=== PATIENT | female | born 1975 | race Caucasian/White ===

== ENCOUNTER → 2020-09-16 09:43 | Outpatient (BNVA) | payer SELFPAY | DX: Z02.1 Encounter for pre-employment examination (principal) ==

== ENCOUNTER 2021-08-21 19:25 | Outpatient (REF) | payer OTHER, SELFPAY ==
[2021-08-21 20:10] LABS: COVID-19 Test Negative (Negative)
== END 2021-08-21 19:26 | disposition home or self-care (01) ==
LOC: HO.LAB 19:25
PROVIDERS: Visit Provider Internal Medicine
DX: Z20.822 Contact with and (suspected) exposure to COVID-19 (principal)
CPT/HCPCS: 87635

== ENCOUNTER → 2021-09-22 11:29 | Outpatient (BNVA) | payer OTHER, SELFPAY | PROVIDERS: Visit Provider Physician Assistant | DX: M77.11 Lateral epicondylitis, right elbow (principal) | CPT/HCPCS: 20551; J1020 ==

== ENCOUNTER → 2022-05-16 15:29 | Outpatient (BNVA) | payer OTHER, SELFPAY | PROVIDERS: PCP Internal Medicine; Visit Provider Physician Assistant | DX: Z13.89 Encounter for screening for other disorder (principal) ==

== ENCOUNTER 2022-05-22 08:41 | Outpatient (REF) | payer OTHER, SELFPAY ==
--- NOTE | ~2022-05-22 | XR_ITS ---
EXAMINATION: XR ANKLE, RIGHT CLINICAL INFORMATION: Pain. COMPARISON: None available. TECHNIQUE: AP, lateral, and mortise views of the right ankle. FINDINGS: Bony alignment and mineralization are normal. No fracture, dislocation or right joint effusion is seen. The ankle mortise is intact. Boehler's angle is normal. There is a minimal plantar calcaneal spur. No focal soft tissue swelling, gas or foreign body is seen. XR/XR ankle RT min 3V IMPRESSION: There is a minimal plantar calcaneal spur incidentally noted. The examination is otherwise unremarkable.
== END 2022-05-22 08:42 | disposition home or self-care (01) ==
LOC: HO.HOSX 08:41
PROVIDERS: Visit Provider Physician Assistant
DX: M25.571 Pain in right ankle and joints of right foot (principal)
CPT/HCPCS: 73610

== ENCOUNTER 2023-01-03 13:52 | Outpatient (AMB) | payer OTHER, SELFPAY ==
--- NOTE | 2023-01-03 13:57 | A.OFFVIS_ITS ---
Intake VS Expanded 01/03/23 13:59 01/15/23 18:59 Height 5 ft 4 in 5 ft 4 in Weight 187 lb 13.341 oz 188 lb BMI 32.2 32.3 Intake Visit Reasons: Obesity-CONFIRMED Allergies No Known Allergies Allergy (Verified 05/22/22 12:44) HPI Nutrition Presentation Details Pt presents for MNT for obesity. Pt reports decreased physical activity related to ankle pain for which she has been seen by orthopedics. Pt reports having good appetite, no concerns expressed ETOH: 2 serving/d fruits: 0-1/ dairy : 2-4 serving/d fish: 0-1/wk protein foods: poultry /beef/eggs vegetables: 2-3 serving/d fluids: 56 oz/d DJV-[id number]-Oy.Jeor Equation Height 5 ft 4 in Weight 188 lb Resting Metabolic Rate 1465.82 Calculated Activity Level Sedentary Calories Needed to Maintain Weight 1758.98 Diagnosis Nutrition problem #1 excessive energy intake As related to (etiology) #1 lack of nutrit education, diagnosis and physical inactivity As evidenced by (sign/symptom) #1 high BMI (32.3 on 12/2022) and knowledge deficit of diet Monitoring/Goals Nutrition problem monitoring level of knowledge/skill and weight Nutrition goal/outcome wt loss 5lbs in 2 months Learning/Education Readiness to learn good Stages of change contemplation Educational materials provided Yes (meal planning) Most Recent Diabetes Results: No Data to Display [facility] Social History Current occupational status: employed 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[employer] Assessment & Plan Assessment & Plan (1) Obesity (BMI 30.0-34.9): Code(s): E66.9 - Obesity, unspecified Plan: wt: 85 kg Est kcal needs as per MSJ: 1800 (40% carb, 30% protein/fat) Est fluid needs as per 30 ml/d: 2600 Est prot per day as per 1 g/kg bw: 85 Recommend fiber intake : 8-10 g per day and gradually increase to 25-28 g per day for women and 35-38 g for men or as tolerated Recommend sodium intake per day : less than 2000 mg Educated patient on: ( R = reviewed V = verbalizes understanding N/R = needs review N/A = not applicable * Food sources of carbohydrate, adequate serving sizes and its role in various health conditions: R * Differences between complex carbohydrates a simple carbohydrates, role of fiber in diet: NR * Differences between types of fats and role in diet (mono on saturated fat fatty acids, saturated fatty acids, trans fats): R basic low fat * Food sources of sodium in salt and healthy modifications for heart health in kidney health: NR * Vitamins and minerals: NR * Healthy plate method concept: R * Physical activity: Benefits a precaution: NR * Mindful eating concepts: R Patient Instructions: Practice mindful eating strategies Work on reducing total carbs to to less than 60 g at meal time , 3 meals/day following healthy plate method Reduce snack to 0-20 g carbs , limit to 2 snack per day Keep hydrated by having water with meals/snacks Reduce calories from alcohol by reducing portion size Coding Level of Care Code Nutr Indiv Intake (96766) Diagnoses Obesity (BMI 30.0-34.9) E66.9 Time Spent (min) 30
[2023-01-03 13:59] VITALS: BMI 32.2
[2023-01-15 18:59] VITALS: BMI 32.3
== END 2023-01-03 14:30 | disposition home or self-care (01) ==
PROVIDERS: PCP Internal Medicine; Visit Provider Dietitian, Registered
DX: E66.9 Obesity, unspecified (principal)

== ENCOUNTER → 2023-01-03 13:52 | Outpatient (BNVA) | payer BC, SELFPAY | PROVIDERS: PCP Internal Medicine; Visit Provider Dietitian, Registered | DX: E66.9 Obesity, unspecified (principal); Z68.32 Body mass index [BMI] 32.0-32.9, adult; Z71.3 Dietary counseling and surveillance | CPT/HCPCS: 97802 ==